=== PATIENT | female | born 1960 | race Two or more races ===

== ENCOUNTER 2023-09-05 10:30 | Emergency (ER) | payer OTHER ==
[~2023-09-05] VITALS: Ht 167.6 cm; Wt 90.7 kg
[2023-09-05] MEDS ORDERED: MIRALAX510 GM PO (14:18)
== END 2023-09-05 14:27 | disposition home or self-care (01) ==
LOC: ER
DX: K59.00 Constipation, unspecified (principal); K57.32 Diverticulitis of large intestine without perforation or abscess without bleeding; I10 Essential (primary) hypertension